=== PATIENT | male | born 1980 | race Caucasian/White ===

== ENCOUNTER 2017-08-15 22:37 | Emergency (ER) | payer SELFPAY ==
[~2017-08-15] VITALS: Ht 160 cm; Wt 74.5 kg
[2017-08-15 22:45] VITALS: Ht 160 cm; Wt 74.5 kg
--- NOTE | 2017-08-15 22:59 | ERD ---
ER Documentation Chief Complaint Date/Time DATE: 08/15/17 TIME: 22:55 Chief Complaint right lower abd pain x 1 hour HPI 36-year-old male who presents emergency department for right-sided abdominal pain started about an hour. Pain was described as sharp and nonradiating. Also complains of vomiting. Denies headache, dizziness, blurry vision, neck pain, difficulty swallowing, shoulder pain, coughing, difficulty breathing when lying flat, chest pain, back pain, urinary symptoms, scrotal pain, direct trauma, injury, falls, recent exposure to any illness, recent long travel, recent antibiotic use in the last 3 months, fever, chills, numbness or tingling sensation. No known drug allergies. No past medical history. No surgeries. Does not take any prescription medication at home. Social: Not working at this time. Denies smoking, use of alcohol, use of illegal drugs. ROS All systems reviewed and are negative except as per history of present illness. Medications Home Meds Active Scripts Tamsulosin Hcl* (Flomax*) 0.4 Mg Cap.er.24h, 0.4 MG PO QPM, #30 CAP Prov:PASILABAN,JASSONAR F 08/16/17 Naproxen* (Naprosyn*) 500 Mg Tablet, 500 MG PO BID Y for PAIN, #30 TAB Prov:PASILABAN,JASSONAR F 08/16/17 Ibuprofen* (Motrin*) 800 Mg Tab, 800 MG PO Q8 Y for PAIN AND OR ELEVATED TEMP, # 30 TAB Prov:PASILABAN,KLAR F 08/16/17 Hydrocodone/Acetaminophen ([place] 5-325 Tablet) 1 Each Tablet, 1 TAB PO Q6H Y for PAIN, #10 TAB Prov:PASILABAN,KLAR F 08/16/17 Allergies Allergies: Coded Allergies: No Known Drug Allergies (Verified Allergy, Unknown, 08/15/17) Physical Exam Vitals Vital Signs Date Time Temp Pulse Resp B/P Pulse Ox O2 Delivery O2 Flow Rate FiO2 08/16/17 02:33 98.1 81 20 126/81 99 08/15/17 22:45 98.1 91 20 99 Physical Exam Const: [] Head: Atraumatic Eyes: Normal Conjunctiva ENT: Normal External Ears, Nose and Mouth. Neck: Full range of motion..~ No meningismus. Resp: Clear to auscultation bilaterally Cardio: Regular rate and rhythm, no murmurs Abd: Soft, Normal bowel sounds. Diffuse abdominal tenderness. Unable to walk due to abdominal pain. Testicular area has no swelling/discoloration. Skin: No petechiae or rashes Back: No midline or flank tenderness Ext: No cyanosis, or edema Neur: Awake and alert Psych: Normal Mood and Affect Result Diagram: 08/15/17 9894 08/15/17 2324 Results 24 hrs Laboratory Tests Test 08/15/17 23:24 08/15/17 23:25 White Blood Count 9.210^3/ul Red Blood Count 4.9910^6/ul Hemoglobin 15.8g/dl Hematocrit 43.9% Mean Corpuscular Volume 88.0fl Mean Corpuscular Hemoglobin 31.7pg Mean Corpuscular Hemoglobin Concent 36.0g/dl Red Cell Distribution Width 12.8% Platelet Count 93976^3/UL Mean Platelet Volume 10.8fl Neutrophils % 59.3% Lymphocytes % 28.1% Monocytes % 10.5% Eosinophils % 1.2% Basophils % 0.5% Nucleated Red Blood Cells % 0.0/100WBC Neutrophils # 5.410^3/ul Lymphocytes # 2.610^3/ul Monocytes # 1.010^3/ul Eosinophils # 0.110^3/ul Basophils # 0.110^3/ul Nucleated Red Blood Cells # 0.010^3/ul Prothrombin Time 11.8Sec Prothrombin Time Ratio 0.9 INR International Normalized Ratio 0.87 Activated Partial Thromboplast Time 25.7Sec Sodium Level 142mmol/L Potassium Level 3.2mmol/L Chloride Level 106mmol/L Carbon Dioxide Level 25mmol/L Anion Gap 14 Blood Urea Nitrogen 12mg/dl Creatinine 1.11mg/dl Glucose Level 110mg/dl Calcium Level 9.8mg/dl Total Bilirubin 0.1mg/dl Direct Bilirubin 0.00mg/dl Indirect Bilirubin 0.1mg/dl Aspartate Amino Transf (AST/SGOT) 29IU/L Alanine Aminotransferase (ALT/SGPT) 53IU/L Alkaline Phosphatase 64IU/L Troponin I < 0.012ng/ml Total Protein 7.9g/dl Albumin 4.5g/dl Globulin 3.40g/dl Albumin/Globulin Ratio 1.32 Amylase Level 99U/L Lipase 62U/L Ethyl Alcohol Level < 10.0mg/dl Urine Color RED Urine Clarity CLOUDY Urine pH 6.0 Urine Specific Reading 1.027 Urine Ketones NEGATIVEmg/dL Urine Nitrite NEGATIVEmg/dL Urine Bilirubin NEGATIVEmg/dL Urine Urobilinogen 1+mg/dL Urine Leukocyte Esterase NEGATIVELeu/ul Urine Microscopic RBC > 182/HPF Urine Microscopic WBC 10/HPF Urine Bacteria FEW/HPF Urine Mucus FEW/HPF Urine Hemoglobin 3+mg/dL Urine Glucose NEGATIVEmg/dL Urine Total Protein 2+mg/dl Urine Opiates Screen Positive Urine Barbiturates Negative Urine Amphetamines Screen Negative Urine Benzodiazepines Screen Negative Urine Cocaine Screen Negative Urine Cannabinoids Negative Current Medications Medications (Trade) Dose Ordered Sig/Skyler Route PRN Reason Start Time Stop Time Status Last Admin Dose Admin Sodium Chloride (NS) 1,000 ml @ 1,000 mls/hr Q1H ONCE IV 08/15/17 23:00 08/15/17 23:59 DC 08/15/17 23:14 Morphine Sulfate (morphine) 4 mg ONCE STAT IV 08/15/17 23:00 08/15/17 23:04 DC 08/15/17 23:14 Ondansetron HCl (Zofran Inj) 4 mg ONCE STAT IV 08/15/17 23:00 08/15/17 23:04 DC 08/15/17 23:13 Hydromorphone HCl (Dilaudid) 1 mg ONCE STAT IV 08/15/17 23:40 08/15/17 23:41 DC 08/15/17 23:48 IV Flush 10 ml 10 ml STK-MED ONCE .ROUTE 08/16/17 00:40 08/16/17 00:41 DC 08/16/17 01:07 Sodium Chloride (NS) 100 ml @ ud STK-MED ONCE .ROUTE 08/16/17 00:40 08/16/17 00:41 DC 08/16/17 01:08 Iohexol (Omnipaque 300mg/ ml) 150 ml STK-MED ONCE .ROUTE 08/16/17 00:40 08/16/17 00:41 DC 08/16/17 01:09 Potassium Chloride (Klor-Con 20) 40 meq ONCE STAT PO 08/16/17 01:37 08/16/17 01:38 DC 08/16/17 02:04 Ketorolac Tromethamine (Toradol) 30 mg ONCE STAT IV 08/16/17 02:08 08/16/17 02:10 DC 08/16/17 02:20 Procedures/MDM 36-year-old male who presents emergency department for right-sided abdominal pain started about an hour. Pain was described as sharp and nonradiating. Also complains of vomiting. Denies headache, dizziness, blurry vision, neck pain, difficulty swallowing, shoulder pain, coughing, difficulty breathing when lying flat, chest pain, back pain, urinary symptoms, scrotal pain, direct trauma, injury, falls, recent exposure to any illness, recent long travel, recent antibiotic use in the last 3 months, fever, chills, numbness or tingling sensation. No known drug allergies. No past medical history. No surgeries. Does not take any prescription medication at home. Social: Not working at this time. Denies smoking, use of alcohol, use of illegal drugs. Physical exam: Unremarkable except the patient has diffuse abdominal tenderness. Unable to walk due to abdominal pain. Testicular area has no swelling/discoloration. Disease process was explained to the patient family member. They both verbalized understanding and agreed with the diagnostic test, treatment, plan of care. CT of the abdomen and pelvis with IV contrast: Mild right-sided hydroureteronephrosis with an obstructing proximal right ureteral [address] evidence of appendicitis. Blood works: Reviewed. Hypokalemia. Urinalysis: Reviewed. Drug screen: Positive for opiates. Scrotal ultrasound: Unremarkable scrotal ultrasound. Cause for testicular pain is not evident. Treatment: IV insertion. Normal saline IV bolus. Morphine IV. Zofran IV. Toradol IV. Reevaluation: Denies headache, dizziness, blurred vision, neck pain, shoulder pain, chest pain, back pain, abdominal pain, nausea, vomiting. Respirations even and unlabored. Lungs are clear to auscultation. No episode of emesis in the emergency department. Active bowel sounds. There is no right upper/right lower/epigastric/left upper/left lower abdominal tenderness and likely palpation. Negative on Rovsing sign. Negative Garett signs. Given psoas sign. No peritoneal signs. Able to jump 10 times without developing lower abdominal pain. No neurovascular deficit no neurological deficits. Stated that he feels much better this time and is ready to go home. Case was discussed with supervising physician, Dr. Chester Vivas who agreed in my medical decision making to discharge patient. Differential diagnosis: Appendicitis versus pancreatitis versus cholecystitis versus diverticulitis versus nephrolithiasis versus pyelonephritis versus ileus Final diagnosis: Mild right-sided hydroureteronephrosis Prescription: Motrin. Naprosyn. [place]. Flomax. Follow-up with PCP in the next 24-48 hours. PCP to refer patient to a urologist in the next 24-48 hours. Come back here in the emergency department for any new symptoms or any worsening of symptoms. All questions and concerns are answered. Patient verbalized understanding and agreed with the plan of care. Hemodynamically stable on discharge. Departure Diagnosis: Primary Impression: Abdominal pain Additional Impressions: Hydroureteronephrosis UTI (urinary tract infection) Condition: Stable Additional Instructions: Follow-up with PCP in the next 24-48 hours. PCP to refer patient to a urologist in the next 24-48 hours. Come back here in the emergency department for any new symptoms or any worsening of symptoms. All questions and concerns are answered. Patient verbalized understanding and agreed with the plan of care. RONIT IGLESIAS Aug 15, 2017 22:59
[2017-08-15] MEDS ORDERED: morphine 4 MG/ML VIAL IV STA (23:00)
[2017-08-15] MEDS ORDERED: SOD CHLORIDE 0.9% 1,000 ML IV ONE (23:00)
[2017-08-15] MEDS ORDERED: ONDANSETRON 4 MG INJ IV STA (23:00)
[2017-08-15] MEDS ORDERED: HYDROmorphONE 1 MG/ML SYG IV STA (23:40)
[2017-08-15 23:59] LABS: BASOPHIL # 0.1 10^3/ul (0.0-0.1); BASOPHILS % 0.5 % (0.0-2.0); EOSINOPHILS # 0.1 10^3/ul (0.0-0.5); EOSINOPHILS % 1.2 % (0.0-7.0); HEMATOCRIT 43.9 % (42.0-52.0); HEMOGLOBIN 15.8 g/dl (14.0-18.0); LYMPHOCYTES # 2.6 10^3/ul (0.8-2.9); LYMPHOCYTES % 28.1 % (15.0-51.0); MEAN CORPUSCULAR HEMOGLOBIN 31.7 pg (29.0-33.0); MEAN PLATELET VOLUME 10.8 fl (7.4-10.4); MONOCYTES % 10.5 % (0.0-11.0); NEUTROPHIL # 5.4 10^3/ul (1.6-7.5); NEUTROPHILS % 59.3 % (39.0-77.0); PLATELET COUNT 319 10^3/UL (140-415); RED BLOOD COUNT 4.99 10^6/ul (4.70-6.10); RED CELL DISTRIBUTION WIDTH 12.8 % (11.5-14.5); WHITE BLOOD COUNT 9.2 10^3/ul (4.8-10.8)
[2017-08-16 00:18] LABS: INR 0.87; PARTIAL THROMBOPLASTIN TIME 25.7 Sec (25.0-35.0); PROTIME 11.8 Sec (12.2-14.2); PT RATIO 0.9
[2017-08-16 00:26] LABS: ALANINE AMINOTRANSFERASE 53 IU/L (13-69); ALBUMIN 4.5 g/dl (3.3-4.9); ALBUMIN/GLOBULIN RATIO 1.32; ALKALINE PHOSPHATASE 64 IU/L (42-121); AMYLASE 99 U/L (11-123); ANION GAP 14 (8-16); ASPARTATE AMINO TRANSFERASE 29 IU/L (15-46); BILIRUBIN,INDIRECT 0.1 mg/dl (0-1.1); BILIRUBIN,TOTAL 0.1 mg/dl (0.2-1.3); BLOOD UREA NITROGEN 12 mg/dl (7-20); CALCIUM 9.8 mg/dl (8.4-10.2); CARBON DIOXIDE 25 mmol/L (21-31); CHLORIDE 106 mmol/L (97-110); CREATININE 1.11 mg/dl (0.61-1.24); GLUCOSE 110 mg/dl (70-220); POTASSIUM 3.2 mmol/L (3.5-5.1); SODIUM 142 mmol/L (135-144); TOTAL PROTEIN 7.9 g/dl (6.1-8.1)
[2017-08-16] MEDS ORDERED: SOD CHLORIDE 0.9% 100 ML ONE (00:40)
[2017-08-16] MEDS ORDERED: IOHEXOL 300MG/ML 150 ML BTL ONE (00:40)
[2017-08-16 00:46] LABS: TROPONIN-I < 0.012 ng/ml (0.00-0.12)
[2017-08-16 00:56] LABS: ADD UMIC YES; UR ASCORBIC ACID NEGATIVE (NEGATIVE); UR BACTERIA FEW /HPF (NONE SEEN); UR BILIRUBIN (Dip) NEGATIVE (NEGATIVE); UR BLOOD (Dip) 3+ mg/dL (NEGATIVE); UR CLARITY CLOUDY (CLEAR); UR COLOR RED (YELLOW); UR GLUCOSE (Dip) NEGATIVE (NEGATIVE); UR KETONES (Dip) NEGATIVE (NEGATIVE); UR LEUKOCYTE ESTERASE (Dip) NEGATIVE Leu/ul (NEGATIVE); UR MUCUS FEW /HPF (NONE SEEN); UR NITRITE (Dip) NEGATIVE (NEGATIVE); UR RBC > 182 /HPF (0-5); UR SPECIFIC GRAVITY (Dip) 1.027 (1.003-1.030); UR TOTAL PROTEIN (Dip) 2+ mg/dl (NEGATIVE); UR UROBILINOGEN (Dip) 1+ mg/dL (NEGATIVE)
--- NOTE | 2017-08-16 01:00 | RADRPT ---
PROCEDURE: SCROTAL ULTRASOUND: CLINICAL INDICATION: 36 years of age, male. Testicular pain . COMPARISON: None available TECHNIQUE: Multiple transverse and sagittal cain scale, color, and spectral Doppler sonographic imag es of the scrotum were obtained. FINDINGS: Right scrotum: Testis measurements: 4 x 2.2 x 2.4 cm (Vol 11.1 mL). Testis appearance: Normal. No intratesticular masses. Color and spectral Doppler tracings: Normal. Epididymis: Normal. Other: Small hydrocele likely physiologic. Negative for varicocele. Left scrotum: Testis measurements: 4.3 x 2.3 x 3 cm (Vol 15 mL). Testis appearance: Normal. No intratesticular masses. Color and spectral Doppler tracings: Normal. Epididymis: Normal. Other: Small hydrocele likely physiologic. Negative for varicocele. Additional comment: None. IMPRESSION: Unremarkable scrotal ultrasound. Cause for testicular pain is not evident. RPTAT: HCTS Physician Lois Date Time Electronically viewed and signed by Physician Lois on 08/16/2017 01:00 /
[2017-08-16 01:31] LABS: BARBITURATES Negative (NEGATIVE); BENZODIAZEPINES Negative (NEGATIVE); CANNABINOIDS Negative (NEGATIVE); COCAINE Negative (NEGATIVE); OPIATES Positive (NEGATIVE)
[2017-08-16] MEDS ORDERED: POTASSIUM CHLORIDE (SR) 20 MEQ TAB PO STA (01:37)
--- NOTE | 2017-08-16 01:57 | RADRPT ---
PROCEDURE: CT ABDOMEN/PELVIS WITH CONTRAST CLINICAL INDICATION: 36-year-old male with right lower quadrant abdominal pain. TECHNIQUE: The study was performed utilizing a GE [employer] VCT 64-slice CT scanner. Direct axia l sections were obtained through the abdomen and pelvis with the use of 100 cc of [id number]-300 nonioni c intravenous contrast material. Sagittal and coronal reformations were obtained. One or more of the following dose reduction techniques were utilized: automated exposure control, adjustment of the mA and/or kV according to patient's size or use of iterative reconstruction technique. The images wer e reviewed on a PACS workstation. CTD/vol = 13.0 mGy; Total Exam DLP = 822.3 mGy-cm. COMPARISON: Testicular ultrasound August 16, 2017. FINDINGS: There is mild nonspecific ground-glass appearance within the lung bases. There is no evidence for s ignificant pleural effusion. The liver has a normal size and contour without focal areas of abnorma l density or contrast enhancement. No intrahepatic nor extrahepatic biliary ductal dilatation is see n. The gallbladder demonstrates no wall thickening nor pericholecystic fluid. No biliary stones are evident. The pancreas is without areas of abnormal attenuation or contrast enhancement. This spleen is identified and has a normal size without abnormal density or contrast enhancement. The adrenal g lands are unremarkable. The kidneys are functional bilaterally. There is mild right-sided hydrourete ronephrosis with an obstructing calculus within the proximal third of the right ureter measuring danie roximately 4 x 4 x 3 mm. The left kidney is without evidence for obstructive uropathy. The urinary b ladder contains urine. The stomach is distended with fluid. There is no evidence for bowel obstruction. There is prominent nonspecific submucosal fat throughout the colon. The appendix is vi sualized and is without edema or surrounding inflammatory reaction. There is no significant free flu id. The prostate is not enlarged however there are small central calcifications within it. There is no significant pelvic free fluid. The aortoiliac vessels are without aneurysmal dilatation. The osse ous structures are intact. IMPRESSION: 1. Mild right-sided hydroureteronephrosis with an obstructing proximal right ureteral 4 x 3 mm calc ulus. 2. No CT evidence for appendicitis. .Eduin Sanderson MD, MD Date Time Electronically viewed and signed by .Eduin Sanderson MD, MD on 08/16/2017 01:57 .M/
[2017-08-16] MEDS ORDERED: KETOROLAC 30 MG INJ IV STA (02:08)
[2017-08-16] MEDS ORDERED: IBUP800T25 PO (02:23)
[2017-08-16] MEDS ORDERED: HYDR-906 PO (02:23)
[2017-08-16] MEDS ORDERED: TAMS-14 PO (02:24)
[2017-08-16] MEDS ORDERED: NAPR-260 PO (02:24)
[2017-08-16 02:33] VITALS: BP 126/81; PULSE 81; RESP 20; TEMP 98.1
== END 2017-08-16 02:34 | disposition home or self-care (01) ==
LOC: FTE 22:37
DX: R10.31 Right lower quadrant pain (principal); N13.2 Hydronephrosis with renal and ureteral calculous obstruction; N39.0 Urinary tract infection, site not specified; R11.10 Vomiting, unspecified
CPT/HCPCS: 74177; 76870; 80053; 80306; 80307; 81001; 82150; 83690; 84484; 85025; 85610; 85730; 96374; 96375; 99285; J1170; J1885; J2270; J2405; J7030; Q9967

== ENCOUNTER 2018-12-26 21:45 | Emergency (ER) | payer SELFPAY ==
[~2018-12-26] VITALS: Ht 61 cm; Wt 74.1 kg
[~2018-12-26 21:45] MED LIST: HYDR-4011 PO; IBUP800T48 PO; NAPR-985 PO; TAMS-14 PO
[2018-12-26 22:02] VITALS: Ht 61 cm; Wt 74.1 kg
== END 2018-12-27 00:09 | disposition left against medical advice (07) ==
LOC: FTE 21:45
DX: Z53.21 Procedure and treatment not carried out due to patient leaving prior to being seen by health care provider (principal)